=== PATIENT | female | born 1935 | race Caucasian/White ===

== ENCOUNTER → 2021-04-24 | Outpatient (CLI) | payer MEDICARE, OTHER ==
[2021-04-24 11:21] LABS: INR 0.9 (<1.2); Prothrombin Time 9.5 sec (9.0-12.0)
[2021-04-24 16:11] LABS: Basophils # (A) 0.05 X 10*3/uL (0.00-0.10); Basophils % (A) 0.9 %; Eosinophils # (A) 0.16 X 10*3/uL (0.04-0.35); HCT 46.7 % (37.2-46.3); HGB 14.4 g/dL (12.0-15.0); Lymphocytes # (A) 1.77 X 10*3/uL (0.90-5.00); MCH 28.5 pg (27.0-32.0); MCHC 30.8 g/dL (32.0-37.0); MCV 92.5 fL (80.0-97.0); Mean Platelet Volume 11.2 fL (9.5-12.2); Monocytes # (A) 0.59 X 10*3/uL (0.20-1.00); Neutrophils # (A) 2.78 X 10*3/uL (1.80-7.70); Neutrophils % (A) 51.9 %; Platelet Count 283 X 10*3/uL (140-440); RBC 5.05 X 10*6/uL (4.10-5.20); RDW 14.8 % (11.5-14.5); WBC 5.36 X 10*3/uL (4.50-10.00)
[2021-04-24 19:01] LABS: African American GFR (CKD) 111.5 (60.0-200.0); Albumin 4.5 g/dL (3.8-4.9); Albumin/Globulin Ratio 2.11 (1.60-3.17); Anion Gap 13.1 mmol/L (4.00-12.00); BUN/Creat Ratio 32.52 Ratio (12.00-20.00); Calcium 9.4 mg/dL (8.7-10.3); Carbon Dioxide 23.8 mmol/L (21.6-31.8); Globulin 2.1 g/dL (1.6-3.3); Non-African American GFR(CKD) 96.2 (60.0-200.0); Potassium 4.5 mmol/L (3.5-5.5); Total Bilirubin 0.3 mg/dL (0.30-1.20); Total Protein 6.6 g/dL (6.2-8.2)
== END | disposition home or self-care (01) ==
LOC: LABWHC1 10:01
PROVIDERS: ATTEND Nurse Practitioner Family
DX: Z01.810 Encounter for preprocedural cardiovascular examination (principal)
CPT/HCPCS: 36415; 80053; 85025; 85610; 85730

== ENCOUNTER 2023-10-06 20:36 | Inpatient (IN) | payer MEDICARE ==
[2023-10-06 21:10] LABS: Basophils % (A) 0 %; Eosinophils # (A) 0.1 k/uL (0-0.7); Eosinophils % (A) 1 %; HCT 42.9 % (34.0-46.0); HGB 13.7 gm/dL (11.4-16.0); Lymphocytes # (A) 1.2 k/uL (1.0-4.8); Lymphocytes % (A) 12 %; MCH 29.7 pg (25.0-35.0); MCHC 31.9 g/dL (31.0-37.0); MCV 93.1 fL (80.0-100.0); Monocytes # (A) 0.7 k/uL (0-1.0); Monocytes % (A) 6 %; Neutrophils # (A) 8.5 k/uL (1.3-7.7); Neutrophils % (A) 80 %; Platelet Count 256 k/uL (150-450); RBC 4.61 m/uL (3.80-5.40); RDW 14.2 % (11.5-15.5); WBC 10.6 k/uL (3.8-10.6)
[2023-10-06] MEDS ORDERED: HEPARIN SODIUM 1,000 UN/ML (10ML VL) IV PRN (21:20)
[2023-10-06 21:21] LABS: ALT 63 U/L (4-34); AST 46 U/L (14-36); African American GFR (CKD) >90 (>60 ml/min/1.73 sqM); Albumin 4.2 g/dL (3.5-5.0); Alkaline Phosphatase 68 U/L (38-126); Anion Gap 10 mmol/L; Blood Urea Nitrogen 25 mg/dL (7-17); Calcium 9.3 mg/dL (8.4-10.2); Carbon Dioxide 21 mmol/L (22-30); Chloride 108 mmol/L (98-107); Glucose 131 mg/dL (74-99); Non-African American GFR(CKD) 85 (>60 ml/min/1.73 sqM); Potassium 4.2 mmol/L (3.5-5.1); Sodium 139 mmol/L (137-145); Total Bilirubin 0.7 mg/dL (0.2-1.3); Total Protein 6.7 g/dL (6.3-8.2)
[2023-10-06 21:25] LABS: Prothrombin Time 11.1 sec (10.0-12.5)
[2023-10-06 21:32] LABS: Partial Thromboplastin Time 18.6 sec (22.0-30.0)
[2023-10-06] MEDS: HYDROmorphone 1 MG/ML 1 ML SYRINGE IVP STA (21:34)
--- NOTE | 2023-10-06 21:34 | ED ---
Arrhythmia/Palpitations HPI - General Chief Complaint: Arrhythmia/Palpitations Stated Complaint: cardiac disturbance Time Seen by Provider: 10/06/23 21:09 Source: patient, EMS Mode of arrival: ambulatory Limitations: no limitations - History of Present Illness Initial Comments: Thuy is a pleasant 88yo F who was transferred to our hospital from an outside hospital for evaluation of arrhythmia. Patient presented to the outside hospital with complaint of weeks of dizziness and generalized weakness at the outside hospital she was noted to have complete heart block with heart rates in the 30s and experienced episodes of V. tach with heart rate in the 200s. Patient was treated with a bolus of amiodarone. Labs resulted with no critical electrolyte abnormalities however her troponin was elevated and she was started on heparin. Patient denies any chest pain prior to arriving at the hospital and complains only of pain from the external pacer upon arrival here. - Related Data Allergies Allergy/AdvReac Type Severity Reaction Status Date / Time No Known Allergies Allergy Verified 10/06/23 21:03 Review of Systems ROS Statement: Those systems with pertinent positive or pertinent negative responses have been documented in the HPI. ROS Other: All systems not noted in ROS Statement are negative. Past Medical History Past Medical History: Thyroid Disorder History of Any Multi-Drug Resistant Organisms: None Reported Past Surgical History: Joint Replacement Additional Past Surgical History / Comment(s): left hip, right wrist Past Psychological History: No Psychological Hx Reported Smoking Status: Former smoker Past Alcohol Use History: Occasional, Rare Past Drug Use History: None Reported General Exam Limitations: no limitations General appearance: alert, in no apparent distress Head exam: Present: atraumatic, normocephalic Eye exam: Present: PERRL ENT exam: Present: normal exam Respiratory exam: Absent: respiratory distress Cardiovascular Exam: Present: bradycardia, irregular rhythm GI/Abdominal exam: Present: soft. Absent: distended Rectal exam: Present: deferred Extremities exam: Absent: tenderness Neurological exam: Present: alert, oriented X3 Psychiatric exam: Present: normal affect, normal mood Skin exam: Present: warm, dry Course Vital Signs 10/06/23 10/06/23 10/06/23 20:50 21:00 21:10 Temperature 98.6 F Pulse Rate 32 L 60 77 Respiratory 18 16 16 Rate Blood Pressure 179/134 139/125 156/141 O2 Sat by Pulse 94 L 97 97 Oximetry 10/06/23 21:34 Temperature Pulse Rate 70 Respiratory 16 Rate Blood Pressure 118/76 O2 Sat by Pulse 100 Oximetry EKG Findings - EKG Comments: EKG Findings:: EKG interpreted by me, EKG obtained at 2107, EKG with a rate of 32 rhythm is a narrow complex regular rhythm with no correlation between P waves and QRS consistent with a complete heart block. No significant ST elevations, diffuse ST depressions are noted concerning for ischemia without acute infarct ion. Medical Decision Making - Medical Decision Making Was pt. sent in by a medical professional or institution (MELISSA Bauer, CHILD CARE TEACHER, urgent care, hospital, or residential...) When possible be specific @ -Yes transfer from [facility] Did you speak to anyone other than the patient for history (EMS, parent, family, police, friend...)? What history was obtained from this source @ -Transferring physician, EMS Did you review nursing and triage notes (agree or disagree)? Why? @ -I reviewed and agree with nursing and triage notes Were old charts reviewed (outside hosp., previous admission, EMS record, old EKG, old radiological studies, urgent care reports/EKG's, residential records)? Report findings @ -Outside EKG and labs were reviewed Differential Diagnosis (chest pain, altered mental status, abdominal pain women, abdominal pain men, vaginal bleeding, weakness, fever, dyspnea, syncope, headache, dizziness, GI bleed, back pain, seizure, CVA, palpatations, mental health)? @ -Not applicable EKG interpreted by me (3pts min.). @ -As above X-rays interpreted by me (1pt min.). @ -None done CT interpreted by me (1pt min.). @ -None done U/S interpreted by me (1pt. min.). @ -None done What testing was considered but not performed or refused? (CT, X-rays, U/S, labs)? Why? @ -None What meds were considered but not given or refused? Why? @ -Atropine was considered but not administered as it had been administered at the outside hospital without effect Did you discuss the management of the patient with other professionals (maryanne clarkfessionalkiko i.e. MELISSA Bauer, CHILD CARE TEACHER, lab, RT, psych nurse, renal social worker, environmental remediation specialist, teacher, chief development officer, therapeutic case manager)? Give summary @ -Dr. Fernandez cardiology Was smoking cessation discussed for >3mins.? @ -No Was critical care preformed (if so, how long)? @ -Yes, 30 minutes Were there social determinants of health that impacted care today? How? (Homelessness, low income, unemployed, alcoholism, drug addiction, transportation, low edu. Level, literacy, decrease access to med. care, penitentiary, rehab)? @ -No Was there de-escalation of care discussed even if they declined (Discuss DNR or withdrawal of care, Hospice)? DNR status @ -Yes patient's CODE STATUS was discussed patient would like to be DNR but would consent to pacemaker placement What co-morbidities impacted this encounter? (DM, HTN, Smoking, COPD, CAD, Cancer, CVA, ARF, Chemo, Hep., AIDS, mental health diagnosis, sleep apnea, morbid obesity)? @ -None Was patient admitted / discharged? Hospital course, mention meds given and route, prescriptions, significant lab abnormalities, going to OR and other pertinent info. @ -Admit The patient was seen and evaluated immediately upon arrival to the emergency department. Patient was awake alert oriented blood pressure was stable she was noted to be critically bradycardic with heart rate in the low 30s. External pacing was attempted but capture was not obtained however due to patient's stable blood pressure decision was made to discontinue external pacing measures due to discomfort. Patient care was discussed with on-call pastor Dr. Mireles who recommended continuation of heparin and dopamine infusion. Both of these were ordered and initiated. Traffic Counter was activated and the patient was transferred to the Traffic Counter. Undiagnosed new problem with uncertain prognosis? @ -Yes Drug Therapy requiring intensive monitoring for toxicity (Heparin, Nitro, Insulin, Cardizem)? @ -Yes, heparin Were any procedures done? @ -No Diagnosis/symptom? @ -Complete heart block Acute, or Chronic, or Acute on Chronic? @ -Acute Uncomplicated (without systemic symptoms) or Complicated (systemic symptoms)? @ -Complicated Side effects of treatment? @ -No Exacerbation, Progression, or Severe Exacerbation? @ -No Poses a threat to life or bodily function? How? (Chest pain, USA, ID, pneumonia, PE, COPD, DKA, ARF, appy, cholecystitis, CVA, Diverticulitis, Homicidal, Suicidal, threat to staff... and all critical care pts) @ -Yes can devolve into fatal arrhythmia Diagnosis/symptom? @ -NSTEMI Acute, or Chronic, or Acute on Chronic? @ -Acute Uncomplicated (without systemic symptoms) or Complicated (systemic symptoms)? @ -Complicated Side effects of treatment? @ -None Exacerbation, Progression, or Severe Exacerbation] @ -No Poses a threat to life or bodily function? @ -Yes, indicates ischemia to cardiac tissue can result in cardiac arrest - Lab Data Result diagrams: 10/06/23 20:50 10/06/23 20:50 Lab Results 10/06/23 10/06/23 10/06/23 Range/Units 20:50 20:50 20:50 WBC 10.6 (3.8-10.6) k/uL RBC 4.61 (3.80-5.40) m/uL Hgb 13.7 (11.4-16.0) gm/dL Hct 42.9 (34.0-46.0) % MCV 93.1 (80.0-100.0) fL MCH 29.7 (25.0-35.0) pg MCHC 31.9 (31.0-37.0) g/dL RDW 14.2 (11.5-15.5) % Plt Count 256 (150-450) k/uL MPV 9.0 Neutrophils % 80 % Lymphocytes % 12 % Monocytes % 6 % Eosinophils % 1 % Basophils % 0 % Neutrophils # 8.5 H (1.3-7.7) k/uL Lymphocytes # 1.2 (1.0-4.8) k/uL Monocytes # 0.7 (0-1.0) k/uL Eosinophils # 0.1 (0-0.7) k/uL Basophils # 0.0 (0-0.2) k/uL PT 11.1 (10.0-12.5) sec INR 1.0 (<1.2) APTT 18.6 L (22.0-30.0) sec Sodium 139 (137-145) mmol/L Potassium 4.2 (3.5-5.1) mmol/L Chloride 108 H (98-107) mmol/L Carbon Dioxide 21 L (22-30) mmol/L Anion Gap 10 mmol/L BUN 25 H (7-17) mg/dL Creatinine 0.53 (0.52-1.04) mg/dL Est GFR (CKD-EPI)AfAm >90 (>60 ml/min/1.73 sqM) Est GFR (CKD-EPI)NonAf 85 (>60 ml/min/1.73 sqM) Glucose 131 H (74-99) mg/dL Calcium 9.3 (8.4-10.2) mg/dL Total Bilirubin 0.7 (0.2-1.3) mg/dL AST 46 H (14-36) U/L ALT 63 H (4-34) U/L Alkaline Phosphatase 68 (38-126) U/L Total Protein 6.7 (6.3-8.2) g/dL Albumin 4.2 (3.5-5.0) g/dL Critical Care Time Critical Care Time: Yes Total Critical Care Time: 30 Disposition Clinical Impression: Complete heart block by electrocardiogram, Ventricular tachycardia (paroxysmal), NSTEMI (non-ST elevated myocardial infarction) Disposition: ADMITTED IP TO THIS [facility] Condition: Critical Is patient prescribed a controlled substance at d/c from ED?: No Referrals: Aria Curtis MD [Primary Care Provider] - 1-2 days
[2023-10-06] MEDS: HEPARIN SOD,PORK IN 0.45% NACL 25,000 UNIT in 0.45% NACL 1 250ML.BAG IV SCH (21:41)
[2023-10-06] MEDS: DOPamine DRIP 800 MG in DEXTROSE/WATER 1 250ML.BAG IV ONE (21:43)
[2023-10-06 21:44] LABS: Magnesium 2.2 mg/dL (1.6-2.3); Phosphorus 3.6 mg/dL (2.5-4.5)
[2023-10-06] MEDS ORDERED: LIDOCAINE 1% INJ 10MG/ML (20 ML MDV) ONE (21:47)
[2023-10-06] MEDS ORDERED: NALOXONE 0.4 MG/ML 1 ML VIAL IV PRN ×2 (21:57→22:16)
[2023-10-06] MEDS ORDERED: ONDANSETRON 4 MG/2 ML VIAL ONE (21:59)
[2023-10-06] MEDS: SODIUM CHLORIDE 0.9% 500 ML 500 ML IV ONE (22:02)
[2023-10-06] MEDS: LIDOCAINE 1% INJ 10MG/ML (20 ML MDV) SQ ONE (22:05)
[2023-10-06] MEDS: ONDANSETRON 4 MG/2 ML VIAL IVP ONE (22:06)
[2023-10-06 22:41] LABS: Glucose,Whole Blood 137 mg/dL (70-110)
[2023-10-06] MEDS: NITROGLYCERIN OINT 1 INCH/GM PACKET TOPICAL SCH (23:16)
[2023-10-06] MEDS: SODIUM CHLORIDE 0.9% 1,000 ML IV SCH (23:17)
--- NOTE | 2023-10-07 03:49 | CONS ---
CONSULTATION CHIEF COMPLAINT: Dizziness and shortness of breath along with not feeling well. HISTORY OF PRESENT ILLNESS: This is an 88-year-old lady, who is brought into hospital as symptomatic complete heart block. She was brought into hospital with symptoms of dizziness and not feeling well by her sister. Apparently, these symptoms were going on for several weeks and have become particularly worse today and came to the ER. She was found to be in complete heart block. Apparently also had episodes of ventricular tachycardia and went on to have amiodarone and she had a TSH at 3.8. We were told that her troponin was slightly elevated, due to which she was transferred on IV heparin and sent to [facility], where the ER doctor evaluated her and called me stating that patient is in complete heart block. I activated the lab with a view to performing a temporary transvenous pacemaker. At the time of my evaluation, the patient appears somewhat confused and does not have any chest pain. She is in complete heart block with heart rate in the 40s. PAST MEDICAL HISTORY: Significant for hypothyroidism. She is on Synthroid. ALLERGIES: None. FAMILY HISTORY: Negative for premature coronary artery disease. SOCIAL HISTORY: There is no history of smoking, ETOH abuse, or drug abuse. REVIEW OF SYSTEMS: I am unable to obtain from the patient, who appears somewhat confused. PHYSICAL EXAMINATION: VITAL SIGNS: Heart rate is 50 beats per minute. Blood pressure is 100/60, respiratory rate is 18. CHEST: Reveals diminished air entry at the bases. HEART: Reveals first and second heart sounds. A systolic murmur at the apex. ABDOMEN: Soft. EXTREMITIES: Did not reveal any edema. Peripheral pulses are felt. LABORATORY DATA: Labs have been done and I reviewed. Electrolytes are normal. Potassium is normal. TSH is normal. Hemoglobin is normal. Troponin done here is pending at this time. ASSESSMENT: Symptomatic complete heart block. PLAN: I will perform a temporary transvenous pacemaker today. Obtain a 2D echo in the morning and consider permanent pacemaker tomorrow. MMODL / IJN: [id number] /
--- NOTE | 2023-10-07 04:22 | PCN ---
PROCEDURE NOTE PROCEDURE PERFORMED: Temporary transvenous pacemaker. INDICATION: Complete heart block. PROCEDURE NOTE: After obtaining informed consent, temporary transvenous pacemaker was performed via the right femoral vein. Right femoral venous access was obtained. Six-Japanese sheath was placed and balloon tipped temporary transvenous pacemaker was floated into the right ventricle under fluoroscopic guidance. Adequate pacing threshold was obtained and the pacemaker was sutured in place and the patient will be admitted to ICU. We will obtain a 2D echo in the morning and consider permanent pacemaker. The procedure was performed uneventfully. Received moderate conscious sedation. Total sedation time was 10 minutes. MMODL / IJN: [id number] /
--- NOTE | 2023-10-07 04:42 | P.HPIM ---
History of Present Illness H&P Date: 10/07/23 Chief Complaint: Generalized weakness 88-year-old female with hypothyroid Patient presented to a different facility complaining of couple weeks history of progressive worsening generalized weakness and dizziness for which she seek medical help today upon presentation to the other facility she was found to be in complete heart block with heart rate down to the 30 bpm with occasional episodes of V. tach with heart rate jumping all the way up to 200 bpm. She was stabilized started on dopamine and heparin drip and sent to our facility for further care and evaluation Upon arrival she was taken to the Suction Dredge Dumping Supervisor by cardiology for transvenous pacing which she tolerated procedure well. Upon my evaluation patient was asymptomatic denies any chest pain or trouble breathing denies taking any AV amrce blockers. Denies any history of heart disease or bradycardia Patient denies tobacco smoking illicit drugs or heavy alcohol review of systems Pertinent positives as noted in HPI. All other systems were reviewed and are negative on exam Constitutional: No acute distress, conversant, Eyes: Anicteric sclerae, moist conjunctiva, Pupils equal round reactive to light ENMT: NC/AT Oropharynx clear, no erythema, or exudates Neck: Supple, no masses, or JVD No carotid bruits No thyromegaly Lungs: Clear to auscultation Clear to percussion Normal respiratory effort, no accessory muscle use Cardiovascular: Heart regular in rate and rhythm, No murmurs, gallops, or rubs No peripheral edema Abdominal: Soft Nontender, no guarding, rebound or rigidity Abdomen moving with respiration Normoactive bowel sounds No hepatomegaly, No splenomegaly Extremities: No digital cyanosis No clubbing Pedal pulses intact and symmetrical Radial pulses intact and symmetrical No calf tenderness Psychiatric: Alert and oriented to person, place and time Neuro Muscles Strength 5/5 in all 4 extremities Sensation to light touch grossly present throughout Cranial nerves II-XII grossly intact Past Medical History Past Medical History: Thyroid Disorder History of Any Multi-Drug Resistant Organisms: None Reported Past Surgical History: Joint Replacement Additional Past Surgical History / Comment(s): left hip, right wrist Past Psychological History: No Psychological Hx Reported Smoking Status: Former smoker Past Alcohol Use History: Occasional, Rare Past Drug Use History: None Reported Medications and Allergies Home Medications Medication Instructions Recorded Confirmed Type Levothyroxine Sodium [Synthroid] 75 mcg PO AC-[id number] 10/06/23 10/06/23 History Allergies Allergy/AdvReac Type Severity Reaction Status Date / Time No Known Allergies Allergy Verified 10/06/23 21:46 Physical Exam Vitals: Vital Signs Temp Pulse Resp BP Pulse Ox 10/07/23 01:00 60 7 L 159/79 100 10/07/23 00:00 60 8 L 182/78 98 10/06/23 23:00 97.8 F 60 7 L 175/76 98 10/06/23 22:39 68 10/06/23 21:44 98.5 F 44 L 18 177/61 98 10/06/23 21:34 70 16 118/76 100 10/06/23 21:10 77 16 156/141 97 10/06/23 21:00 60 16 139/125 97 10/06/23 20:50 98.6 F 32 L 18 179/134 94 L Intake and Output 10/06/23 10/06/23 10/07/23 14:59 22:59 06:59 Intake Total 108.449 30 Output Total 0 Balance 108.449 30 Intake: IV 100 Intake, IV Titration 8.449 30 Amount Heparin Sod,Pork in 0.45% 8.449 NaCl 25,000 unit In 0.45 % NaCl 1 250ml.bag @ 12 UNITS/KG/HR 7.566 mls/hr IV .Q24H [facility] Rx#: [id number] Sodium Chloride 0.9% 1, 30 000 ml @ 10 mls/hr IV . Q24H [facility] Rx#:[id number] Output: Urine 0 Other: Weight 63.049 kg Results CBC & Chem 7: 10/06/23 20:50 10/06/23 20:50 Labs: Abnormal Lab Results - Last 24 Hours (Table) 10/06/23 10/06/23 10/06/23 Range/Units 20:50 20:50 20:50 Neutrophils # 8.5 H (1.3-7.7) k/uL APTT 18.6 L (22.0-30.0) sec Chloride 108 H (98-107) mmol/L Carbon Dioxide 21 L (22-30) mmol/L BUN 25 H (7-17) mg/dL Glucose 131 H (74-99) mg/dL POC Glucose (mg/dL) (70-110) mg/dL AST 46 H (14-36) U/L ALT 63 H (4-34) U/L Troponin I (0.000-0.034) ng/mL TSH (0.465-4.680) mIU/L 10/06/23 10/06/23 10/06/23 Range/Units 20:50 21:21 22:39 Neutrophils # (1.3-7.7) k/uL APTT (22.0-30.0) sec Chloride (98-107) mmol/L Carbon Dioxide (22-30) mmol/L BUN (7-17) mg/dL Glucose (74-99) mg/dL POC Glucose (mg/dL) 137 H (70-110) mg/dL AST (14-36) U/L ALT (4-34) U/L Troponin I 0.143 H* (0.000-0.034) ng/mL TSH 4.740 H (0.465-4.680) mIU/L Assessment and Plan Assessment: 88-year-old female with hypothyroid presented with generalized weakness and dizziness for couple weeks she was diagnosed with complete heart block at the different facility was transferred to our hospital on a dopamine and heparin drip for further cardiology evaluation I discussed the case with ED doctor and a ccepted the admission for complete heart block with anticipated length of stay more than 2 midnights Complete heart block symptomatic Status post transvenous pacing Heparin and dopamine drip were discontinued per cardiology recommendations Close monitoring in the ICU Check echocardiogram in the morning Cardiology following Elevated troponin 0.143 Blood work unremarkable white count 10.6 hemoglobin 13.7 Sodium 139 potassium 4.2 BUN 25 creatinine 0.5 Hypothyroid Continue with levothyroxine Free T4 within normal limit Full code DVT prophylaxis heparin subcu 3 times daily
[2023-10-07 04:51] LABS: Partial Thromboplastin Time 20.7 sec (22.0-30.0); Prothrombin Time 11.1 sec (10.0-12.5)
[2023-10-07] MEDS: LEVOTHYROXINE 75 MCG TAB PO SCH (06:13)
[2023-10-07] MEDS: HEPARIN SODIUM,PORCINE 5,000 UNIT/ML 1 ML VIAL SQ SCH (08:41)
--- NOTE | 2023-10-07 10:29 | P.PN ---
Subjective Progress Note Date: 10/07/23 This is an 88-year-old female patient who is a transfer from [facility] due to complete heart block with heart rate down to the 30s and episodes of V. tach. Patient has a past medical history of hypothyroidism and joint replacement patient reports that over the past year she's had noticed some inc reased shortness of breath. Upon arrival to [facility] patient was taken to the Stock Saw Operator and transvenous venous pacemaker placed. Patient was transferred to the ICU for closer monitoring. Initial troponin 0.143. On 10/07/2023 patients alert and oriented 3 currently resting comfortably in the ICU. TVP in place current vital signs temp 98.4, heart rate 60, respiratory rate 20, blood pressure 152/60 with a pulse ox 96% Objective - Vital Signs Vital signs: Vital Signs Temp 98.4 F 10/07/23 08:00 Pulse 60 10/07/23 09:00 Resp 20 10/07/23 09:00 BP 161/67 10/07/23 09:00 Pulse Ox 97 10/07/23 09:00 FiO2 Intake & Output 10/06/23 10/07/23 10/07/23 18:59 06:59 18:59 Intake Total 188.449 40 Output Total 400 400 Balance -211.551 -360 Weight 62.7 kg Intake: IV 100 30 Sodium Chloride 0.9% 1, 30 000 ml @ 10 mls/hr IV . Q24H [facility] Rx#:[id number] Intake, IV Titration 88.449 10 Amount Heparin Sod,Pork in 0.45% 8.449 NaCl 25,000 unit In 0.45 % NaCl 1 250ml.bag @ 12 UNITS/KG/HR 7.566 mls/hr IV .Q24H [facility] Rx#: [id number] Sodium Chloride 0.9% 1, 80 10 000 ml @ 10 mls/hr IV . Q24H [facility] Rx#:[id number] Oral 0 Output: Urine 400 400 Straight 400 Other: # Voids 0 # Bowel Movements 0 - Exam Head normocephalic Neck supple Lungs clear to auscultation bilaterally no wheezing or crackles Heart regular rate and rhythm S1-S2, no rub or gallop Abdomen is soft nontender nondistended positive bowel sounds no hep atosplenomegaly Extremities no edema Neuro alert and orientated to 3 - Labs CBC & Chem 7: 03/19/24 20:50 10/06/23 20:50 Labs: Abnormal Lab Results - Last 24 Hours (Table) 10/06/23 10/06/23 10/06/23 Range/Units 20:50 20:50 20:50 Neutrophils # 8.5 H (1.3-7.7) k/uL APTT 18.6 L (22.0-30.0) sec Chloride 108 H (98-107) mmol/L Carbon Dioxide 21 L (22-30) mmol/L BUN 25 H (7-17) mg/dL Glucose 131 H (74-99) mg/dL POC Glucose (mg/dL) (70-110) mg/dL AST 46 H (14-36) U/L ALT 63 H (4-34) U/L Troponin I (0.000-0.034) ng/mL TSH (0.465-4.680) mIU/L 10/06/23 10/06/23 10/06/23 Range/Units 20:50 21:21 22:39 Neutrophils # (1.3-7.7) k/uL APTT (22.0-30.0) sec Chloride (98-107) mmol/L Carbon Dioxide (22-30) mmol/L BUN (7-17) mg/dL Glucose (74-99) mg/dL POC Glucose (mg/dL) 137 H (70-110) mg/dL AST (14-36) U/L ALT (4-34) U/L Troponin I 0.143 H* (0.000-0.034) ng/mL TSH 4.740 H (0.465-4.680) mIU/L 10/07/23 Range/Units 03:46 Neutrophils # (1.3-7.7) k/uL APTT 20.7 L (22.0-30.0) sec Chloride (98-107) mmol/L Carbon Dioxide (22-30) mmol/L BUN (7-17) mg/dL Glucose (74-99) mg/dL POC Glucose (mg/dL) (70-110) mg/dL AST (14-36) U/L ALT (4-34) U/L Troponin I (0.000-0.034) ng/mL TSH (0.465-4.680) mIU/L Assessment and Plan Assessment: Complete heart block status post transvenous pacing History of hypothyroidism History of joint replacement Ex-smoker Patient currently in the intensive care unit with transvenous pacing Cardiology services following Repeat labs ordered
--- NOTE | 2023-10-07 13:14 | CA ---
Transthoracic Echo Report Name: Thuy Gallardo Age: 88 Gender: F : 1935 Exam Date: 10/07/2023 06:59 Exam Location: [place] Echo Ht (in): 61 Wt (lb): 139 Ordering Physician: Kalyan Fernandez MD ([id number]) Attending/Referring Phys: Jim SADLER Infectious Disease Physician Kylie Santos RDCS Procedure CPT: Indications: heart block Cardiac Hx: Technical Quality: Good Contrast 1: Total Dose (mL): Contrast 2: Total Dose (mL): MEASUREMENTS (Male / Female) Normal Values 2D ECHO LV Diastolic Diameter PLAX 5.1 cm 4.2 - 5.9 / 3.9 - 5.3 cm LV Systolic Diameter PLAX 3.4 cm IVS Diastolic Thickness 1.1 cm 0.6 - 1.0 / 0.6 - 0.9 cm LVPW Diastolic Thickness 0.9 cm 0.6 - 1.0 / 0.6 - 0.9 cm LV Relative Wall Thickness 0.4 RV Internal Dim ED PLAX 2.9 cm LA Systolic Diameter LX 3.4 cm 3.0 - 4.0 / 2.7 - 3.8 cm LV Diastolic Volume MOD BP 84.8 cm??? 67 - 155 / 56 - 104 cm??? LV Systolic Volume MOD BP 27.6 cm??? 22 - 58 / 19 - 49 cm??? LV Ejection Fraction MOD BP 67.4 % >= 55 % LV Cardiac Index MOD BP 2060.5 cm???/min???m??? LV Diastolic Volume MOD 4C 82.7 cm??? LV Systolic Volume MOD 4C 26.8 cm??? LV Ejection Fraction MOD 4C 67.6 % LV Cardiac Index MOD 4C 2017.4 cm???/min???m??? LV Diastolic Length 4C 7.4 cm LV Systolic Length 4C 6.2 cm LV Diastolic Volume MOD 2C 87.7 cm??? LV Systolic Volume MOD 2C 31.5 cm??? LV Ejection Fraction MOD 2C 64.1 % LV Cardiac Index MOD 2C 2028.8 cm???/min???m??? LV Diastolic Length 2C 7.5 cm LV Systolic Length 2C 6.7 cm M-MODE Aortic Root Diameter MM 3.4 cm LA Systolic Diameter MM 3.8 cm LA Ao Ratio MM 1.1 DOPPLER AV Peak Velocity 157.6 cm/s AV Peak Gradient 9.9 mmHg AI Peak Velocity 293.1 cm/s AI Peak Gradient 34.4 mmHg AI Pressure Half Time 541.8 ms Mitral E Point Velocity 93.4 cm/s Mitral A Point Velocity 93.9 cm/s Mitral E to A Ratio 1.0 MV Deceleration Time 356.6 ms TR Peak Velocity 296.3 cm/s TR Peak Gradient 35.1 mmHg Right Ventricular Systolic Press 40.1 mmHg FINDINGS Left Ventricle Left ventricular ejection fraction is estimated at 55-60 %. Left ventricular cavity size normal. Mildly increased septal wall thickness. Right Ventricle Normal right ventricular size. Mild pulmonary hypertension. Right Atrium Normal right atrial size. Left Atrium Normal left atrial size. Mitral Valve Structurally normal mitral valve. Mild mitral annular calcification. Mild-to- moderate mitral regurgitation. Aortic Valve Trileaflet aortic valve. Aortic valve sclerosis. Mild aortic regurgitation. Tricuspid Valve Structurally normal tricuspid valve. Mild tricuspid regurgitation. Pulmonic Valve Structurally normal pulmonic valve. Trace pulmonic regurgitation. Pericardium No pericardial effusion. Aorta Normal size aortic root and proximal ascending aorta. CONCLUSIONS Normal LV systolic function Mild aortic insufficiency [id number]-li-grnakkxm mitral insufficiency Mild pulmonary hypertension Previewed by: Dr. Santo Drummond MD (Electronically Signed) Final Date: 07 October 2023 13:13
--- NOTE | 2023-10-07 14:09 | P.PN ---
Subjective HISTORY OF PRESENTING ILLNESS This is a pleasant 88 -year-old female with history of hypothyroidism who presents secondary to feeling more fatigued, near-syncope as well as complete heart block. She states over last 1-2 weeks she has been feeling fatigued and initially thought may be pneumonia with PCP ordering some antibiotics. She had more significant episode of being on the couch and slumping over when her sister brought her in to the emergency department. She was found to be in high degree AV block and bradycardic with normal TSH 3. She had brief episodes of 3 seconds of ventricular tachycardia per ER note and was given amiodarone bolus. She was transferred to [facility] and placed on heparin drip. Her troponins at [facility] were 0.1 and currently 0.143 at [facility]. Patient had temporary pacemaker placed and remains dependent on pacemaker. She denies any chest pain or pressure. PHYSICAL EXAMINATION Vital signs reviewed. CONSTITUTIONAL: No apparent distress. HEENT: Head is normocephalic. Pupils are equal, round. Sclerae anicteric. Mucous membranes of the mouth are moist. No JVD. No carotid bruit. CHEST EXAMINATION: Lungs are clear to auscultation. No chest wall tenderness is noted on palpation or with deep breathing. HEART EXAMINATION: Regular rate and rhythm. S1, S2 heard. No murmurs, gallops or rub. ABDOMEN: Soft, nontender. Positive bowel sounds. EXTREMITIES: 2+ peripheral pulses, no lower extremity edema and no calf tenderness. NEUROLOGIC EXAMINATION: Patient is awake, alert and oriented x3. ASSESSMENT 1. Complete heart block 2. Non-STEMI likely related to complete heart block 3. Brief episodes of ventricular tachycardia likely related to hypoperfusion from bradycardia 4. History of hypothyroidism PLAN Echocardiogram performed which shows preserved EF without significant valvular disease. Non-STEMI likely type II mechanism without any significant angina-type symptoms. She does have some mild confusion per sister however per sister nearly at her baseline. Continue aspirin for now given non-STEMI. Discussed risks and benefits of pacemaker. Ventricular tachycardia appears related to hypoperfusion and does not currently have indications for AICD. Proceed with permanent pacemaker tomorrow. Objective - Vital Signs Vital signs: Vital Signs Temp 98.2 F 10/07/23 12:00 Pulse 60 10/07/23 13:00 Resp 32 H 10/07/23 13:00 BP 143/70 10/07/23 13:00 Pulse Ox 95 10/07/23 13:00 FiO2 Intake & Output 10/06/23 10/07/23 10/07/23 18:59 06:59 18:59 Intake Total 188.449 180 Output Total 400 600 Balance -211.551 -420 Weight 62.7 kg Intake: IV 100 70 Sodium Chloride 0.9% 1, 70 000 ml @ 10 mls/hr IV . Q24H LILIANA Rx#:[id number] Intake, IV Titration 88.449 10 Amount Heparin Sod,Pork in 0.45% 8.449 NaCl 25,000 unit In 0.45 % NaCl 1 250ml.bag @ 12 UNITS/KG/HR 7.566 mls/hr IV .Q24H LILIANA Rx#: [id number] Sodium Chloride 0.9% 1, 80 10 000 ml @ 10 mls/hr IV . Q24H LILIANA Rx#:[id number] Oral 100 Output: Urine 400 600 Straight 400 Other: Voiding Method External Catheter # Voids 0 # Bowel Movements 0 - Labs CBC & Chem 7: 10/06/23 20:50 10/06/23 20:50 Labs: Abnormal Lab Results - Last 24 Hours (Table) 10/06/23 10/06/23 10/06/23 Range/Units 20:50 20:50 20:50 Neutrophils # 8.5 H (1.3-7.7) k/uL APTT 18.6 L (22.0-30.0) sec Chloride 108 H (98-107) mmol/L Carbon Dioxide 21 L (22-30) mmol/L BUN 25 H (7-17) mg/dL Glucose 131 H (74-99) mg/dL POC Glucose (mg/dL) (70-110) mg/dL AST 46 H (14-36) U/L ALT 63 H (4-34) U/L Troponin I (0.000-0.034) ng/mL TSH (0.465-4.680) mIU/L 10/06/23 10/06/23 10/06/23 Range/Units 20:50 21:21 22:39 Neutrophils # (1.3-7.7) k/uL APTT (22.0-30.0) sec Chloride (98-107) mmol/L Carbon Dioxide (22-30) mmol/L BUN (7-17) mg/dL Glucose (74-99) mg/dL POC Glucose (mg/dL) 137 H (70-110) mg/dL AST (14-36) U/L ALT (4-34) U/L Troponin I 0.143 H* (0.000-0.034) ng/mL TSH 4.740 H (0.465-4.680) mIU/L 10/07/23 Range/Units 03:46 Neutrophils # (1.3-7.7) k/uL APTT 20.7 L (22.0-30.0) sec Chloride (98-107) mmol/L Carbon Dioxide (22-30) mmol/L BUN (7-17) mg/dL Glucose (74-99) mg/dL POC Glucose (mg/dL) (70-110) mg/dL AST (14-36) U/L ALT (4-34) U/L Troponin I (0.000-0.034) ng/mL TSH (0.465-4.680) mIU/L
[2023-10-07] MEDS: SODIUM CHLORIDE 0.9% 1,000 ML IV SCH (17:15)
[2023-10-07] MEDS ORDERED: HEPARIN SODIUM 1,000 UN/ML (10ML VL) IV PRN (20:04)
[2023-10-07] MEDS: HEPARIN SODIUM 1,000 UN/ML (10ML VL) IV ONE (20:31)
[2023-10-07] MEDS: HEPARIN SOD,PORK IN 0.45% NACL 25,000 UNIT in 0.45% NACL 1 250ML.BAG IV SCH (20:33)
[2023-10-07 22:08] LABS: Basophils % (A) 0 %; Eosinophils # (A) 0.2 k/uL (0-0.7); Eosinophils % (A) 1 %; HCT 41.7 % (34.0-46.0); HGB 12.8 gm/dL (11.4-16.0); Lymphocytes # (A) 1.6 k/uL (1.0-4.8); Lymphocytes % (A) 14 %; MCH 28.8 pg (25.0-35.0); MCHC 30.6 g/dL (31.0-37.0); MCV 94.1 fL (80.0-100.0); Mean Platelet Volume 9.4; Monocytes # (A) 1.1 k/uL (0-1.0); Monocytes % (A) 10 %; Neutrophils # (A) 8.1 k/uL (1.3-7.7); Neutrophils % (A) 74 %; Platelet Count 225 k/uL (150-450); RBC 4.44 m/uL (3.80-5.40); RDW 14.1 % (11.5-15.5)
[2023-10-07 22:12] LABS: INR 1.1 (<1.2); Partial Thromboplastin Time 76.6 sec (22.0-30.0); Prothrombin Time 11.5 sec (10.0-12.5)
[2023-10-08 00:16] LABS: Glucose,Whole Blood 86 mg/dL (70-110)
[2023-10-08 04:32] LABS: Basophils % (A) 0 %; Eosinophils # (A) 0.1 k/uL (0-0.7); Eosinophils % (A) 1 %; HGB 12.3 gm/dL (11.4-16.0); Lymphocytes # (A) 1.5 k/uL (1.0-4.8); Lymphocytes % (A) 15 %; MCH 29.1 pg (25.0-35.0); MCHC 31.5 g/dL (31.0-37.0); MCV 92.3 fL (80.0-100.0); Mean Platelet Volume 9.9; Monocytes % (A) 10 %; Neutrophils # (A) 7.6 k/uL (1.3-7.7); Neutrophils % (A) 73 %; Platelet Count 210 k/uL (150-450); RBC 4.23 m/uL (3.80-5.40); WBC 10.4 k/uL (3.8-10.6)
[2023-10-08 04:51] LABS: INR 1.1 (<1.2); Prothrombin Time 11.8 sec (10.0-12.5)
[2023-10-08] MEDS: LEVOTHYROXINE 88 MCG TAB PO SCH (06:42)
[2023-10-08] MEDS ORDERED: fentaNYL (PF) 50 MCG/ML 2 ML AMP ONE (09:46)
[2023-10-08] MEDS ORDERED: LIDOCAINE 1% INJ 10MG/ML (20 ML MDV) ONE (09:46)
[2023-10-08] MEDS: MIDAZOLAM 2 MG/2 ML VIAL IVP ONE (10:01)
[2023-10-08] MEDS: ceFAZolin 1 GM in SODIUM CHLORIDE 0.9% IRRIG BTL 250 ML IRRIGATION PRN (10:06)
[2023-10-08] MEDS: LIDOCAINE 1% INJ 10MG/ML (20 ML MDV) SQ ONE ×2 (10:07→10:10)
[2023-10-08] MEDS: fentaNYL (PF) 50 MCG/ML 2 ML AMP IVP ONE (10:23)
[2023-10-08] MEDS ORDERED: ACETAMINOPHEN TAB 325 MG TAB PO PRN (11:03)
[2023-10-08 11:54] LABS: Glucose,Whole Blood 82 mg/dL (70-110)
--- NOTE | 2023-10-08 14:16 | CT ---
EXAMINATION TYPE: CT brain wo con DATE OF EXAM: 10/08/2023 COMPARISON: None HISTORY: Altered mental status CT DLP: 1017.4 mGycm Automated exposure control for dose reduction was used. FINDINGS: The ventricles, basal cisterns and sulci of the convexities are moderately enlarged consistent with m oderate generalized atrophy appropriate for the patient's age. There is marked decreased density in the periventricular white matter consistent with marked chronic ischemic white matter demyelination. There is no mass effect or shift of the midline structures. There is no acute intra or extra-axial hemorrhage. The posterior fossa including brain stem, fourth ventricle and cerebellopontine angles appear grossly normal. Intraorbital contents appear normal symmetric. Visualized paranasal sinuses and mastoid air cells are well aerated. There is minimally mucosal thickening in the right maxillary sinus. The calvarium is i ntact. IMPRESSION: 1. MODERATE AGE-APPROPRIATE ATROPHY. MARKED CHRONIC ISCHEMIC WHITE MATTER DEMYELINATION. 2. NO ACUTE BLEED OR MASS EFFECT
--- NOTE | 2023-10-08 14:41 | P.PN ---
Subjective Progress Note Date: 10/08/23 This is an 88-year-old female patient who is a transfer from [facility] due to complete heart block with heart rate down to the 30s and episodes of V. tach. Patient has a past medical history of hypothyroidism and joint replacement patient reports that over the past year she's had noticed some inc reased shortness of breath. Upon arrival to [facility] patient was taken to the [facility] and transvenous venous pacemaker placed. Patient was transferred to the ICU for closer monitoring. Initial troponin 0.143. On 10/07/2023 patients alert and oriented 3 currently resting comfortably in the ICU. TVP in place current vital signs temp 98.4, heart rate 60, respiratory rate 20, blood pressure 152/60 with a pulse ox 96% On 10/08/2023 patient was seen and examined in the ICU she is alert and oriented 3 in no apparent distress she is scheduled for permanent pacemaker placement today. Last night patient was noticed to be more confused and having difficulty finding her words computed tomography scan of the brain was ordered and neurology consultation was requested. Today patient seems to be back to her baseline she is denying any complaints there is no fever or chills no headache or dizziness no chest pain no shortness of breath no cough no nausea or vomiting no abdominal pain no diarrhea and no urinary symptoms Objective - Vital Signs Vital signs: Vital Signs Temp 98.8 F 10/08/23 12:00 Pulse 69 10/08/23 12:00 Resp 23 10/08/23 12:00 BP 178/72 10/08/23 12:00 Pulse Ox 94 L 10/08/23 12:00 FiO2 Intake & Output 10/07/23 10/08/23 10/08/23 18:59 06:59 18:59 Intake Total 570 720 465.147 Output Total 1050 450 0 Balance -480 270 465.147 Weight 64 kg Intake: IV 220 720 380 Sodium Chloride 0.9% 1, 120 120 30 000 ml @ 10 mls/hr IV . Q24H LILIANA Rx#:[id number] Sodium Chloride 0.9% 1, 100 600 300 000 ml @ 50 mls/hr IV . Q20H LILIANA Rx#:[id number] Intake, IV Titration 10 85.147 Amount Heparin Sod,Pork in 0.45% 85.147 NaCl 25,000 unit In 0.45 % NaCl 1 250ml.bag @ 12 UNITS/KG/HR 7.524 mls/hr IV .Q24H LILIANA Rx#: [id number] Sodium Chloride 0.9% 1, 10 000 ml @ 10 mls/hr IV . Q24H LILIANA Rx#:[id number] Oral 340 0 0 Output: Urine 1050 450 0 Other: Voiding Method External Catheter External Catheter External Catheter # Voids 0 0 # Bowel Movements 0 0 0 - Exam Head normocephalic Neck supple Lungs clear to auscultation bilaterally no wheezing or crackles Heart regular rate and rhythm S1-S2, no rub or gallop Abdomen is soft nontender nondistended positive bowel sounds no hepatosplenomegaly Extremities no edema Neuro alert and orientated to 3 - Labs CBC & Chem 7: 10/08/23 03:48 10/06/23 20:50 Labs: Abnormal Lab Results - Last 24 Hours (Table) 10/07/23 10/07/23 10/07/23 Range/Units 13:57 21:17 21:17 WBC 11.0 H (3.8-10.6) k/uL MCHC 30.6 L (31.0-37.0) g/dL Neutrophils # 8.1 H (1.3-7.7) k/uL Monocytes # 1.1 H (0-1.0) k/uL APTT 76.6 H (22.0-30.0) sec Troponin I 0.186 H* (0.000-0.034) ng/mL 10/08/23 Range/Units 03:48 WBC (3.8-10.6) k/uL MCHC (31.0-37.0) g/dL Neutrophils # (1.3-7.7) k/uL Monocytes # (0-1.0) k/uL APTT 58.8 H (22.0-30.0) sec Troponin I (0.000-0.034) ng/mL Assessment and Plan Assessment: Complete heart block status post transvenous pacing History of hypothyroidism History of joint replacement Ex-smoker Patient currently in the intensive care unit with transvenous pacing Cardiology services following Repeat labs ordered
--- NOTE | 2023-10-08 15:01 | EEG ---
DATE OF SERVICE: 10/08/2023 ELECTROENCEPHALOGRAM REPORT PREAMBLE: This is an 88-year-old female, who was transferred from another facility after being found in complete heart block. She has been complaining of weakness and dizziness. The patient was having some confusion for which Neurology has been involved. EEG FINDINGS: This is a 21-channel digital EEG recorded with video component, utilizing 10/20 international system with referential bipolar montages. Background consists of well developed, moderately well regulated, 8 hertz posterior dominant background while awake. Background is posterior dominant and reactive to eye opening and closing. The patient was probably drowsy during most of the study with presence of bilaterally symmetric theta and some delta frequency rhythm. Photic driving response was not seen. Some stage 2 sleep was probably seen with presence of vertex waves. No definitive focal or generalized epileptiform activity was seen. IMPRESSION: The patient was drowsy and probably asleep during most of the study. Some brief period of wakefulness was associated with normal-appearing background activity. Overall, this EEG probably is normal, although mild encephalopathy cannot be ruled out. Clinical correlation is recommended. No epileptiform activity was seen. MMODL / IJN: [id number] / MTDD
[2023-10-08 18:07] LABS: Glucose,Whole Blood 110 mg/dL (70-110)
[2023-10-09 01:29] LABS: Glucose,Whole Blood 79 mg/dL (70-110)
[2023-10-09 05:05] LABS: Basophils % (A) 0 %; Eosinophils # (A) 0.3 k/uL (0-0.7); Eosinophils % (A) 3 %; HCT 41.9 % (34.0-46.0); HGB 13.3 gm/dL (11.4-16.0); Lymphocytes # (A) 1.4 k/uL (1.0-4.8); Lymphocytes % (A) 14 %; MCH 29.6 pg (25.0-35.0); MCHC 31.7 g/dL (31.0-37.0); MCV 93.6 fL (80.0-100.0); Monocytes # (A) 0.8 k/uL (0-1.0); Monocytes % (A) 9 %; Neutrophils # (A) 7.1 k/uL (1.3-7.7); Neutrophils % (A) 73 %; Platelet Count 168 k/uL (150-450); RBC 4.47 m/uL (3.80-5.40); WBC 9.8 k/uL (3.8-10.6)
[2023-10-09 05:20] LABS: ALT 32 U/L (4-34); AST 34 U/L (14-36); African American GFR (CKD) >90 (>60 ml/min/1.73 sqM); Alkaline Phosphatase 65 U/L (38-126); Anion Gap 6 mmol/L; Blood Urea Nitrogen 13 mg/dL (7-17); Calcium 8.3 mg/dL (8.4-10.2); Carbon Dioxide 22 mmol/L (22-30); Chloride 108 mmol/L (98-107); Glucose 82 mg/dL (74-99); Non-African American GFR(CKD) 87 (>60 ml/min/1.73 sqM); Potassium 3.5 mmol/L (3.5-5.1); Sodium 136 mmol/L (137-145); Total Bilirubin 0.8 mg/dL (0.2-1.3); Total Protein 5.4 g/dL (6.3-8.2)
[2023-10-09 06:35] LABS: Glucose,Whole Blood 81 mg/dL (70-110)
--- NOTE | 2023-10-09 08:15 | XR ---
EXAMINATION TYPE: XR chest 1V portable DATE OF EXAM: 10/09/2023 COMPARISON: NONE HISTORY: Reflux TECHNIQUE: Single frontal view of the chest is obtained. FINDINGS: There is no focal air space opacity, pleural effusion, or pneumothorax seen. The cardiac silhouette size is within normal limits. The osseous structures are intact. Dual lead cardiac devic e with approximately overlying the right atrium and distal lead overlying the right ventricle. Diffus e osteopenia with arthropathy of the shoulders. 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 IMPRESSION: No acute process.
--- NOTE | 2023-10-09 09:30 | P.PCN ---
Date of Procedure: 10/08/23 Description of Procedure: CARDIOLOGY PROCEDURE NOTE Environmental Services Associate: Dr. Steven Bailey Procedure performed: Insertion dual chamber permanent pacemaker Site: Left subclavian Indications: Complete heart block Date of procedure: 10/08/23 Complications: None Blood Loss: Minimal Description of Procedure: After the risks, benefits, and alternatives of the above-mentioned procedure was explained in detail with the patient, informed consent was obtained. The patient was taken to the cardiac catheterization suite where the left subclavian area was sterily prepped and draped in the usual fashion. One percent lidocaine was used to anesthetize the left subclavian area. Twenty milliliters of Isoview 370 contrast was injected into the left antecubital vein to allow for direct visualization of the left subclavian vein under fluoroscopy. A 1.5 inch incision was made utilizing a #15 blade in the left subclavian site. Hemostasis was made complete. Electrocautery along with digital blunt dissection was utilized to dissect to the level of the pectoralis muscle fascia and create a pocket large enough to accommodate the generator. A thin walled micro puncuture needle was used to cannulate the left subclavian vein. A guide-wire was inserted through the needle into the vascular lumen under fluoroscopic guidance. The needle was removed. Another thin walled micr puncture needle was used to again cannulate the left subclavian vein. A guide-wire was inserted through the needle into the vascular lumen under fluoroscopic guidance. The needle was removed and both guide-wires were attached to the field. A venous sheath and dilator were advanced over the guidewire into the vascular lumen under fluoroscopic guidance. The dilator and guidewire were then removed. A right ventricular bipolar lead was inserted into the sheath and advanced under fluoroscopic guidance into the right ventricle under fluoroscopic guidance. Adequate sensing and pacing thresholds were achieved and the lead was screwed into place in the RV apex. The sheath was then torn away. The lead collar was advanced and anchored into place utilizing #0 silk suture. Next, another venous sheath and dilator were advanced under fluoroscopic guidance into the vascular lumen over the guidewire. After removal of the dilator and guidewire, a right atrial bipolar lead was inserted into this sheath and advanced under fluoroscopic guidance into the right atrium. The lead was positioned into the right atrial appendage. Adequate sensing and pacing thresholds were then achieved with patient being in Aflutter at the time and the lead was screwed into place. The sheath was then torn away. The lead collar was advanced and anchored into place utilizing #0 silk suture. The leads were then inserted into the appropriate position into the generator. They were then secured with the setscrew provided. The leads and generator were inserted into the pocket with the leads posterior. The subcutaneous tissue was approximated utilizing #2.0 and 3.0 vicryl in an interrupted stitch fashion. The dermal layer was approximated utilizing #4.0 joe ryl. The area was cleansed with sterile saline and dried. A sterile 4x4 dressing was applied and the patient was transferred to the post catheterization holding area in stable and satisfactory condition. The temporary venous pacemaker was removed and the femoral sheath was removed with pressure held and hemostasis achieved. The patient tolerated the procedure well. Generator Data Steel Tester: [id number] Brand: [id number] Krysten XT DR MRI Model #: [id number] Serial#: [id number] Right Atrial Bipolar Lead Data: Type: Active fixation lead Steel Tester: Medtronic Model#: 5076-45 Serial Number: [id number] Right Ventricular Bipolar Lead Data: Type: Active fixation lead Steel Tester: [employer]onic Model #: 5076-52 Serial #: [id number] Stimulation Thresholds: Right atrial bipolar lead pacing and sensing thresholds Voltage: 1.0 V Impedance: 646 ohms P-wave sensin.1 mV Right Ventricular bipolar lead pacing and sensing thresholds Pulse Width: 0.4ms Voltage: 1.0 volts Impedance: 893 ohms R-wave sensing: Pacing dependent Parameter Setting: Pacing mode is DDD Lower rate 60 bpm Upper rate 120 bpm Impressions: 1. Successful implantation of a dual chamber permanent pacemaker in the left pe ctoral site. Plan: 1. Routine post procedure care will be instituted as well as outpatient follow- up surveillance.
--- NOTE | 2023-10-09 09:33 | P.CNNES ---
History of Present Illness Consult date: 10/08/23 Requesting physician: Ole Thao Reason for Consult: AMS History of Present Illness: Patient is a 88-year-old right-handed female came to the [facility] by ambulance 2 days ago, 10/06/2023 at 8:36 PM as a transfer from [facility]. EMS flowsheet not available in the chart. As per records from [facility], patient presented to the ED on 10/06/2023 at 5:50 PM. Patient's vitals were 180/107, heart rate 45, respiration 18, temperature 97.6 and saturation 97%. Patient's sodium was 135 potassium 3.8, normal renal functions. AST 51, ALT 63. CBC with hemoglobin 13.0, platelets 259. TSH 3.86 which is normal. As per ED records, patient has complaints of dizziness for several weeks but got worse for 3 days prior to arrival. She was diagnosed with walking pneumonia on 10/02/2023, and was given Medrol Dosepak with mg moxifloxacin. Patient states that on the fourth day of taking medication, she started feeling loopy, dizzy, "out of it". She was talking to her sister when she passed out. Patient's sister took her to the hospital. Patient had another syncopal spell in the ER. The fatigue has been present for 1 to 2 weeks. Patient had brief 3 seconds of ventricular tachycardia per ER note. Patient has been diagnosed with complete heart block, non-STEMI, likely related to complete heart block, brief episode of ventricular tachycardia. Patient was started on aspirin. Patient also had a syncopal spell in the ER. Vital signs arrival blood pressure 179/134, pulse rate 32, temperature 98.6. Blood test shows normal CBC, PT PTT, normal electrolytes, BUN 25 creatinine 0.5 3. AST 46, ALT 63. Troponin mildly elevated 0.143. TSH is elevated 4.74, free T41.80. 2D echo revealed normal left ventricular systolic function, with EF 55 to 60%, mild aortic insufficiency. Left atrial size is normal. Mild to moderate mitral insufficiency. Mild pulmonary hypertension. Patient has undergone permanent pacemaker placement today. Patient lives with her sister Pauline. Patient denies hypertension or diabetes. She quit smoking in 1976. Patient states that she has been using a cane for 1 week because of dizziness. Otherwise she does not use any assistive device. Review of Systems Constitutional: Denies chills, Denies fever Eyes: denies blurred vision, denies diplopia, denies pain, denies loss of maureen pheral vision Ears: bilateral: decreased hearing, deny: earache Ears, nose, mouth and throat: Reports headache (Once in a while), Reports vertigo, Denies nasal congestion, Denies sinus pressure, Denies sore throat Cardiovascular: Reports shortness of breath, Denies chest pain Respiratory: Reports excessive sputum, Reports wheezing, Denies cough Gastrointestinal: Denies abdominal pain, Denies diarrhea, Denies nausea, Denies vomiting Genitourinary: Denies dysuria, Denies hematuria, Denies urge incontinence, Denies urinary frequency Musculoskeletal: Reports low back pain (long time), Denies neck pain Integumentary: Denies pruritus, Denies rash Neurological: Reports as per HPI Psychiatric: Denies anxiety, Denies depression Past Medical History Past Medical History: Thyroid Disorder History of Any Multi-Drug Resistant Organisms: None Reported Past Surgical History: Joint Replacement Additional Past Surgical History / Comment(s): left hip, right wrist Past Psychological History: No Psychological Hx Reported Smoking Status: Former smoker Past Alcohol Use History: Occasional, Rare Past Drug Use History: None Reported Medications and Allergies Home Medications Medication Instructions Recorded Confirmed Type Levothyroxine Sodium [Synthroid] 75 mcg PO AC-BRKFST 10/06/23 10/06/23 History Allergies Allergy/AdvReac Type Severity Reaction Status Date / Time No Known Allergies Allergy Verified 10/06/23 21:46 Physical Examination - Vital Signs Vital Signs: Vital Signs Temp Pulse Resp BP Pulse Ox 10/08/23 09:00 60 17 179/88 96 10/08/23 08:00 98.8 F 60 12 181/87 97 10/08/23 07:00 59 L 18 179/72 96 10/08/23 06:00 60 14 153/81 97 10/08/23 05:00 60 10 L 164/73 96 10/08/23 04:00 99.6 F 60 12 171/70 97 10/08/23 03:00 60 38 H 161/92 96 10/08/23 02:00 60 19 168/123 10/08/23 01:00 60 16 172/72 97 10/08/23 00:00 98.0 F 60 10 L 175/69 95 10/07/23 23:00 59 L 11 L 157/73 96 10/07/23 22:26 60 12 175/72 96 10/07/23 22:00 60 13 168/70 96 10/07/23 21:00 60 9 L 168/70 95 10/07/23 20:00 97.5 F L 60 11 L 144/69 94 L 10/07/23 19:00 60 13 168/69 95 10/07/23 18:00 70 16 154/80 98 10/07/23 17:00 60 17 131/62 94 L 10/07/23 16:00 98.7 F 60 16 152/74 95 10/07/23 15:00 60 15 150/80 94 L 10/07/23 14:00 60 20 158/70 96 10/07/23 13:00 60 32 H 143/70 95 10/07/23 12:00 98.2 F 60 16 156/76 94 L Intake and Output 10/07/23 10/08/23 10/08/23 22:59 06:59 14:59 Intake Total 620 480 315.147 Output Total 450 450 0 Balance 170 30 315.147 Intake: IV 380 480 230 Sodium Chloride 0.9% 1, 80 80 30 000 ml @ 10 mls/hr IV . Q24H [facility] Rx#:[id number] Sodium Chloride 0.9% 1, 300 400 150 000 ml @ 50 mls/hr IV . Q20H [facility] Rx#:[id number] Intake, IV Titration 85.147 Amount Heparin Sod,Pork in 0.45% 85.147 NaCl 25,000 unit In 0.45 % NaCl 1 250ml.bag @ 12 UNITS/KG/HR 7.524 mls/hr IV .Q24H [facility] Rx#: [id number] Oral 240 0 0 Output: Urine 450 450 0 Other: Voiding Method External Catheter External Catheter External Catheter # Voids 0 # Bowel Movements 0 0 0 Weight 64 kg Patient is an elderly female, very pleasant, in no acute distress. Patient is alert awake oriented to time place and person. Speech and language functions are normal. Patient can name and repeat very well. No aphasia or dysarthria. Attention, concentration and fund of knowledge is adequate. On cranial nerve examination, pupils are equal, round and reacting to light, visual galdamez are full on confrontation, with no neglect on double simultaneous stimulation. Extraocular muscles are intact with no nystagmus. Face is symmetric, tongue protrudes to the midline. Palatal elevation and sensation normal, hearing is mildly decreased and shoulder shrug normal, facial sensation normal. On muscle strength testing, there is no pronator drift and the strength is normal in arms and legs distally and proximally. Deep tendon reflexes are symmetric 1+ at the biceps, 1+ brachioradialis, 1 at the knees, and plantars downgoing bilaterally. Sensory to touch is equal with no neglect on double simultaneous stimulation. Cerebellar function showed no ataxia for [id number] testing. No dysdiadochokinesia. No ataxia for gkgm-tk-ojad testing on either side. Tone and bulk of muscles normal. Gait deferred.. On general examination, there is no carotid bruit heard on either side, no murmur, S1-S2 audible. Chest is clear on consultation. Abdomen is soft nontender. No organomegaly, bowel sounds present. Peripheral pulses are pres ent. No peripheral edema. Results - Laboratory Findings CBC and BMP: 10/09/23 04:36 10/09/23 04:36 Abnormal Lab Findings: Abnormal Labs 10/06/23 10/06/23 10/06/23 20:50 20:50 20:50 WBC MCHC Neutrophils # 8.5 H Monocytes # APTT 18.6 L Chloride 108 H Carbon Dioxide 21 L BUN 25 H Glucose 131 H POC Glucose (mg/dL) AST 46 H ALT 63 H Troponin I TSH 10/06/23 10/06/23 10/06/23 20:50 21:21 22:39 WBC MCHC Neutrophils # Monocytes # APTT Chloride Carbon Dioxide BUN Glucose POC Glucose (mg/dL) 137 H AST ALT Troponin I 0.143 H* TSH 4.740 H 10/07/23 10/07/23 10/07/23 03:46 13:57 21:17 WBC 11.0 H MCHC 30.6 L Neutrophils # 8.1 H Monocytes # 1.1 H APTT 20.7 L Chloride Carbon Dioxide BUN Glucose POC Glucose (mg/dL) AST ALT Troponin I 0.186 H* TSH 10/07/23 10/08/23 21:17 03:48 WBC MCHC Neutrophils # Monocytes # APTT 76.6 H 58.8 H Chloride Carbon Dioxide BUN Glucose POC Glucose (mg/dL) AST ALT Troponin I TSH Assessment and Plan Assessment: * Syncopal spell, likely due to third-degree heart block. * Altered mental status, likely due to mild encephalopathy, now resolved. * Status post pacemaker placement 10/08/2023. * Non-STEMI * Status posttreatment for walking pneumonia * Hypothyroidism Plan: * Patient's neurological examination is normal. Mentation is completely normal. Dizziness has resolved. * EEG was performed, which was drowsy and probably is sleep during most of the study. Some brief oeriods of wakefulness was associated with normal-appearing background activity. Overall this EEG is probably normal, although mild encephalopathy cannot be ruled out. Clinical correlation is recommended. No epileptiform activity was seen. * CT head revealed moderate age-related atrophy, mild chronic ischemic white matter demyelination. No acute process. I personally reviewed CT head agree with the findings. * TSH 4.74, free T41.80. IM to address abnormal thyroid function. * Lipid panel with cholesterol 199, LDL 110, HDL 77, triglycerides 57. * Hemoglobin A1c 5.9. * Other management as per IM and cardiology. * No other neurological workup indicated. Neurologically clear. * Thank you for the consult.
--- NOTE | 2023-10-09 13:14 | P.PN ---
Subjective Progress Note Date: 10/09/23 Thuy Gallarod, is an 88-year-old female patient who is a transfer from [facility] due to complete heart block with heart rate down to the 30s and episodes of V. tach. Patient has a past medical history of hypothyroidism and joint replacement patient reports that over the past year she's had noticed some increased shortness of breath. Upon arrival to [facility] patient was taken to the Orderlies Teacher and transvenous venous pacemaker placed. Patient was transferred to the ICU for closer monitoring. Initial troponin 0.143. On 10/07/2023 patients alert and oriented 3 currently resting comfortably in the ICU. TVP in place current vital signs temp 98.4, heart rate 60, respiratory rate 20, blood pressure 152/60 with a pulse ox 96% On 10/08/2023 patient was seen and examined in the ICU she is alert and oriented 3 in no apparent distress she is scheduled for permanent pacemaker placement today. Last night patient was noticed to be more confused and having difficulty finding her words computed tomography scan of the brain was ordered and neurology consultation was requested. Today patient seems to be back to her baseline she is denying any complaints there is no fever or chills no headache or dizziness no chest pain no shortness of breath no cough no nausea or vomiting no abdominal pain no diarrhea and no urinary symptoms. On 10/09/2023 patient was seen and examined in the ICU she is alert and oriented 3 in no apparent distress, she denies any complaints there is no fever or chil ls no headache or dizziness no chest pain no shortness of breath no cough no nausea or vomiting no abdominal pain no diarrhea or urinary symptoms Objective - Vital Signs Vital signs: Vital Signs Temp 97.7 F 10/09/23 08:00 Pulse 89 10/09/23 08:00 Resp 15 10/09/23 04:00 BP 165/86 10/09/23 08:00 Pulse Ox 95 10/09/23 08:00 FiO2 Intake & Output 10/08/23 10/09/23 10/09/23 18:59 06:59 18:59 Intake Total 915.147 600 Output Total 0 600 600 Balance 915.147 0 -600 Weight 62.1 kg Intake: IV 530 600 Sodium Chloride 0.9% 1, 30 000 ml @ 10 mls/hr IV . [facility] Rx#:[id number] Sodium Chloride 0.9% 1, 450 600 000 ml @ 50 mls/hr IV . Q20H [facility] Rx#:[id number] Intake, IV Titration 85.147 Amount Heparin Sod,Pork in 0.45% 85.147 NaCl 25,000 unit In 0.45 % NaCl 1 250ml.bag @ 12 UNITS/KG/HR 7.524 mls/hr IV .Q24H [facility] Rx#: [id number] Oral 0 Tube Feeding 300 Output: Urine 0 600 600 Other: Voiding Method External Catheter Bedside Commode Toilet # Voids 1 1 # Bowel Movements 0 0 - Exam Head normocephalic Neck supple Lungs clear to auscultation bilaterally no wheezing or crackles Heart regular rate and rhythm S1-S2, no rub or gallop Abdomen is soft nontender nondistended positive bowel sounds no hepatosplen omegaly Extremities no edema Neuro alert and orientated to 3 - Labs CBC & Chem 7: 10/09/23 04:36 10/09/23 04:36 Labs: Abnormal Lab Results - Last 24 Hours (Table) 10/09/23 Range/Units 04:36 Sodium 136 L (137-145) mmol/L Chloride 108 H (98-107) mmol/L Creatinine 0.49 L (0.52-1.04) mg/dL Calcium 8.3 L (8.4-10.2) mg/dL Total Protein 5.4 L (6.3-8.2) g/dL Albumin 3.0 L (3.5-5.0) g/dL Assessment and Plan Assessment: Complete heart block status post transvenous pacing History of hypothyroidism History of joint replacement Ex-smoker Patient currently in the intensive care unit with transvenous pacing Cardiology services following Repeat labs ordered
[2023-10-09 14:19] VITALS: BP 157/81; PULSE 86; RESP 16; TEMP 98.8
--- NOTE | 2023-10-09 15:25 | P.PN ---
Subjective HISTORY OF PRESENTING ILLNESS This is a pleasant 88 -year-old female with history of hypothyroidism who presents secondary to feeling more fatigued, near-syncope as well as complete heart block. She states over last 1-2 weeks she has been feeling fatigued and initially thought may be pneumonia with PCP ordering some antibiotics. She had more significant episode of being on the couch and slumping over when her sister brought her in to the emergency department. She was found to be in high degree AV block and bradycardic with normal TSH 3. She had brief episodes of 3 seconds of ventricular tachycardia per ER note and was given amiodarone bolus. She was transferred to [facility] and placed on heparin drip. Her troponins at [facility] were 0.1 and currently 0.143 at [facility]. Patient had temporary pacemaker placed and remains dependent on pacemaker. She denies any chest pain or pressure. 10/08 Patient seen and examined. Patient denies any chest pain or pressure. She had pacemaker placed yesterday and interrogation today shows stable parameters. PHYSICAL EXAMINATION Vital signs reviewed. CONSTITUTIONAL: No apparent distress. HEENT: Head is normocephalic. Pupils are equal, round. Sclerae anicteric. Mucous membranes of the mouth are moist. No JVD. No carotid bruit. CHEST EXAMINATION: Lungs are clear to auscultation. No chest wall tenderness is noted on palpation or with deep breathing. HEART EXAMINATION: Regular rate and rhythm. S1, S2 heard. No murmurs, gallops or rub. ABDOMEN: Soft, nontender. Positive bowel sounds. EXTREMITIES: 2+ peripheral pulses, no lower extremity edema and no calf tenderness. NEUROLOGIC EXAMINATION: Patient is awake, alert and oriented x3. ASSESSMENT 1. Complete heart block 2. Non-STEMI likely related to complete heart block 3. Brief episodes of ventricular tachycardia likely related to hypoperfusion from bradycardia 4. History of hypothyroidism PLAN Echocardiogram performed which shows preserved EF without significant valvular disease. Non-STEMI likely type II mechanism without any significant angina-type symptoms. Patient had some confusion however this appears stable today and neurology evaluated patient Patient is status post permanent pacemaker 10/07 and parameters appears stable. Patient is stable for discharge home from a cardiology standpoint. Objective - Vital Signs Vital signs: Vital Signs Temp 98.8 F 10/09/23 12:00 Pulse 86 10/09/23 12:00 Resp 16 10/09/23 12:00 BP 157/81 10/09/23 12:00 Pulse Ox 95 10/09/23 12:00 FiO2 Intake & Output 10/08/23 10/09/23 10/09/23 18:59 06:59 18:59 Intake Total 915.147 600 850 Output Total 0 600 1200 Balance 915.147 0 -350 Weight 62.1 kg Intake: IV 530 600 450 Sodium Chloride 0.9% 1, 30 000 ml @ 10 mls/hr IV . Q24H [facility] Rx#:[id number] Sodium Chloride 0.9% 1, 450 600 450 000 ml @ 50 mls/hr IV . Q20H [facility] Rx#:[id number] Intake, IV Titration 85.147 Amount Heparin Sod,Pork in 0.45% 85.147 NaCl 25,000 unit In 0.45 % NaCl 1 250ml.bag @ 12 UNITS/KG/HR 7.524 mls/hr IV .Q24H [facility] Rx#: [id number] Oral 300 400 Output: Urine 0 600 1200 Other: Voiding Method External Catheter Bedside Commode Toilet # Voids 1 1 # Bowel Movements 0 0 - Labs CBC & Chem 7: 10/09/23 04:36 10/09/23 04:36 Labs: Abnormal Lab Results - Last 24 Hours (Table) 10/09/23 Range/Units 04:36 Sodium 136 L (137-145) mmol/L Chloride 108 H (98-107) mmol/L Creatinine 0.49 L (0.52-1.04) mg/dL Calcium 8.3 L (8.4-10.2) mg/dL Total Protein 5.4 L (6.3-8.2) g/dL Albumin 3.0 L (3.5-5.0) g/dL
--- NOTE | 2023-10-14 11:25 | P.DS ---
Providers Date of admission: 10/06/23 21:57 Expected date of discharge: 10/09/23 Attending physician: Ole Thao Consults: 10/06/23 21:57 Consult Physician Stat Consulting Provider: Kalyan Fernandez Consult Reason/Comments: heart block Do you want consulting provider notified?: Already Contacted 10/07/23 21:19 Consult Physician Stat Consulting Provider: Naveed Hewitt Consult Reason/Comments: altered mental status Do you want consulting provider notified?: Yes Primary care physician: [facility] Course: Diagnosis on discharge: Complete heart block status post transvenous pacing History of hypothyroidism History of joint replacement Ex-smoker Hospital course: Thuy Gallardo, is an 88-year-old female patient who is a transfer from [facility] due to complete heart block with heart rate down to the 30s and episodes of V. tach. Patient has a past medical history of hypothyroidism and joint replacement patient reports that over the past year she's had noticed some increased shortness of breath. Upon arrival to [facility] patient was taken to the Ethnic Studies Professor and transvenous venous pacemaker placed. Patient was transferred to the ICU for closer monitoring. Initial troponin 0.143. On 10/07/2023 patients alert and oriented 3 currently resting comfortably in the ICU. TVP in place current vital signs temp 98.4, heart rate 60, respiratory rate 20, blood pressure 152/60 with a pulse ox 96% On 10/08/2023 patient was seen and examined in the ICU she is alert and oriented 3 in no apparent distress she is scheduled for permanent pacemaker placement today. Last night patient was noticed to be more confused and having difficulty finding her words computed tomography scan of the brain was ordered and neurology consultation was requested. Today patient seems to be back to her baseline she is denying any complaints there is no fever or chills no headache or dizziness no chest pain no shortness of breath no cough no nausea or vomiting no abdominal pain no diarrhea and no urinary symptoms. On 10/09/2023 patient was seen and examined in the ICU she is alert and oriented 3 in no apparent distress, she denies any complaints there is no fever or chills no headache or dizziness no chest pain no shortness of breath no cough no nausea or vomiting no abdominal pain no diarrhea or urinary symptoms by Status post implantation of dual-chamber permanent pacemaker.cleared by cardiology and neurology services Patient Condition at Discharge: Stable Plan - Discharge Summary New Discharge Prescriptions: New Levothyroxine Sodium [Synthroid] 88 mcg PO DAILY@0630 90 Days #90 tab No Action Levothyroxine Sodium [Synthroid] 75 mcg PO AC-BRKFST Discharge Medication List Levothyroxine Sodium [Synthroid] 75 mcg PO AC-BRKFST 10/06/23 [History] Levothyroxine Sodium [Synthroid] 88 mcg PO DAILY@0630 90 Days #90 tab 10/09/23 [Rx] Follow up Appointment(s)/Referral(s): Aria Curtis MD [Primary Care Provider] - 1-2 days (Please call during business hours to make post-hospital appointment.) Steven Bailey DO [STAFF PHYSICIAN] - 1 Week (Office will call with Date and time of appointment.) Patient Instructions/Handouts: Pacemaker (DC) Activity/Diet/Wound Care/Special Instructions: No raising left arm above shoulder for 6 weeks No lifting more than 5-10lbs in left arm for 6 weeks Discharge Disposition: HOME SELF-CARE
== END 2023-10-09 16:45 | disposition home or self-care (01) | DRG 242 ==
LOC: EC 20:36 → 2SICU 21:57
PROVIDERS: ADMIT Internal Medicine; ATTEND Internal Medicine
PROC: 3E033XZ Introduction of Vasopressor into Peripheral Vein, Percutaneous Approach (ICD-10-PCS; 2023-10-06)
PROC: 5A1223Z Performance of Cardiac Pacing, Continuous (ICD-10-PCS; 2023-10-06)
PROC: 02H63JZ Insertion of Pacemaker Lead into Right Atrium, Percutaneous Approach (ICD-10-PCS; 2023-10-08)
PROC: 02HK3JZ Insertion of Pacemaker Lead into Right Ventricle, Percutaneous Approach (ICD-10-PCS; 2023-10-08)
PROC: 0JH606Z Insertion of Pacemaker, Dual Chamber into Chest Subcutaneous Tissue and Fascia, Open Approach (ICD-10-PCS; principal; 2023-10-08 13:45)
DX: I44.2 Atrioventricular block, complete (principal); I21.A1 Myocardial infarction type 2; J18.9 Pneumonia, unspecified organism; G93.40 Encephalopathy, unspecified; I27.20 Pulmonary hypertension, unspecified; I47.20 Ventricular tachycardia, unspecified; Z66 Do not resuscitate; E03.9 Hypothyroidism, unspecified; R00.1 Bradycardia, unspecified; I08.0 Rheumatic disorders of both mitral and aortic valves; Z96.60 Presence of unspecified orthopedic joint implant; Z87.891 Personal history of nicotine dependence; Z79.890 Hormone replacement therapy
CPT/HCPCS: 33208; 33210; 36415; 70450; 71045; 80053; 82607; 82746; 83735; 84100; 84439; 84443; 84484; 85025; 85610; 85730; 93005; 93306; 95816; 96374; 96375; 99291